=== PATIENT | female | born 1950 | race Caucasian/White ===

== ENCOUNTER 2018-02-27 15:36 | Inpatient (IN) ==
[~2018-02-27 15:36] MED LIST: POLYETHYL. GLYCOL 3350 BOTTLE 238 GM PO ONE
[2018-02-27] MEDS ORDERED: NS FLUSH BAG 500ml IV PRN (15:39)
--- NOTE | 2018-02-27 16:03 | History & Physical Report ---
History of Present Illness Date: 02/27/18 Chief complaint: symptomatic anemia, GI bleeding HPI: Opal is a 67 yr old female who presented to her primary care, Dr. Rubalcava today for evaluation of dyspnea. She reports that for the last month she has had ongoing dyspnea worse with exertion. She was noted to have a history of anemia and had been placed on PO Iron last year. She reports that it caused some constipation and so she stopped it. Upon reevaluation today. Hemoglobin was found to be significantly lower at 6.7. Rectal exam did reveal heme positive stool. Given her symptomatic anemia. The hospitalist services were contacted and accepted. Patient for direct admission. Outpatient observation under the care of Dr. Castro after for further evaluation and treatment. Patient was scheduled for consultation with Dr. Tatum 03/05/18 to discuss colonoscopy. Review of Systems All systems PM: 10-point ROS was reviewed, no additional remarkable complaints except - Respiratory Respiratory: Present: dyspnea on exertion - Gastrointestinal Gastrointestinal: Present: dyspepsia Past Medical History Medical History Updates: Chronic Anemia. GERD. Depression. Hypercholesterolemia Surgical History: Colonoscopy- 2016. Multiple eye surgeries for detached retina and macular tear- x6 surgeries Family History: Father- "clotting problems", congestive heart failure, dementia Mother-heart disease, diabetes, stroke Family History: As Above - Social History Smoking status: Never smoker Substance use type: does not use Alcohol intake frequency: holidays/special occasions only Housing: house Current occupational status: retired Social history: PCP Dr Rubalcava Medications Home Medications Medication Instructions Recorded Confirmed Type Sertraline HCl [Zoloft] 50 mg PO DAILY #0 tab 11/03/15 02/27/18 History Aspirin [Adult Aspirin] 81 mg PO HS 02/27/18 02/27/18 History Cyanocobalamin (Vitamin B-12) 5,000 mcg PO HS 02/27/18 02/27/18 History [Vitamin B12] Multivitamin [One Daily] 1 each PO HS 02/27/18 02/27/18 History Simvastatin [Zocor] 40 mg PO HS 02/27/18 02/27/18 History Sucralfate [Carafate] 1 gm PO QID 02/27/18 02/27/18 History Allergies Allergy/AdvReac Type Severity Reaction Status Date / Time grass pollen Allergy Unknown Verified 02/27/18 16:23 DIRT Allergy Unknown Uncoded 02/27/18 16:23 PET DANDER Allergy Unknown Uncoded 02/27/18 16:23 Exam Vital Signs: Temperature 97.7 F 02/27/18 15:45 Pulse Rate 78 02/27/18 15:45 Respiratory Rate 28 H 02/27/18 15:45 Blood Pressure 131/71 02/27/18 15:45 Pulse Oximetry 97 02/27/18 15:45 Height/Weight/BMI: Height 1.75 m Weight 97.3 kg Body Mass Index 31.6 - Constitutional Present: no acute distress, well nourished, well developed - Routine HEENT Exam Eye: Present: EOMI ENT: Present: mucous membranes moist, dentition normal - Routine Respiratory Exam Present: CTA bilaterally. Absent: wheezes - Routine Cardiovascular Exam Present: RRR, S1, S2. Absent: murmur - Routine Abdominal Exam Present: soft, normoactive bowel sounds, non distended. Absent: tenderness - Routine Extremities Exam Present: normal capillary refill - Routine Skin Exam Present: intact, dry, pallor, warm - Routine Neurological Exam Present: alert, oriented X3, CN II-XII intact, moving all extremities - Routine Psychiatric Exam Present: normal affect, normal thought process, cooperative Assessment and Plan (1) Anemia Current visit: Yes Status: Acute Assessment and Plan: Impression Symptomatic anemia-Hgb 6.7 on admission Chronic Anemia (?Iron def) GERD- worsening heartburn symptoms Depression Hyperlipidemia Plan Admit outpatient observation under the care of Dr Castro for symptomatic anemia Rectal exam at the clinic is reported to be heme positive. We will obtain a stool for occult blood. Iron studies were drawn in the outpatient setting today and are pending Type and screen patient and give 1 unit of packed red blood cells at time of admission. Recheck Hgb later this evening. Consultation placed to Dr. Tatum as patient did have outpatient appointment scheduled for 03/05 to discuss colonoscopy. Patient nothing by mouth until she is evaluated by surgeon today. Protonix 40 mg IV daily- will start now. NS at 100ml/hr for hydration Monitor on cardiac telemetry SCDs to bilateral lower extremity for DVT prophylaxis He should does wish to be a full code and this orders written Will discuss further orders and plan of care with attending, Dr. Castro At time of discharge medical care will return to primary care provider, Dr Rubalcava DVT Prophylaxis: SCD's GI Prophylaxis: Protonix Resuscitation Status: Full Code - Physician Narrative Narrative: Date: 02/27/18 Time: 1600 S: Pt denies any n/v/d, f/c, cp or sob. Denies any epigastric pain. Reports hx of GERD. Had colonoscopy 2 years ago which was unremarkable. Pt denies any NSAID use, denies hematemesis. Reports she doesn't really look at her stool so she's unable to say if any blood in stool but no blood on her tissue. Reports exertional dyspnea has gotten bad in the last month. O: Gen: no acute distress Cards; tachycardia, no murmurs A/P: GI bleed-Hemodynamically stable, bleed seems to be slow and has happened over months, give 1U pRBC, IV fluids, monitor H&H, bowel prep tonight and npo tomorrow for EGD/colonoscopy, surgery consulted. Hospital Course Summary Disclaimer: The visit summary below is not to be considered part of the above Progress Note. Hospital Course: Impression Symptomatic anemia-Hgb 6.7 on admission Chronic Anemia (?Iron def) GERD- worsening heartburn symptoms Depression Hyperlipidemia Plan Admit outpatient observation under the care of Dr Castro for symptomatic anemia Rectal exam at the clinic is reported to be heme positive. We will obtain a stool for occult blood. Iron studies were drawn in the outpatient setting today and are pending Type and screen patient and give 1 unit of packed red blood cells at time of admission. Recheck Hgb later this evening. Consultation placed to Dr. Tatum as patient did have outpatient appointment scheduled for 03/05 to discuss colonoscopy. Patient nothing by mouth until she is evaluated by surgeon today. Protonix 40 mg IV daily- will start now. NS at 100ml/hr for hydration Monitor on cardiac telemetry SCDs to bilateral lower extremity for DVT prophylaxis Full code as requested by patient Will discuss further orders and plan of care with attending, Dr. Castro At time of discharge medical care will return to primary care provider, Dr Rubalcava
--- NOTE | 2018-02-27 16:07 | General Surgery Consult Note ---
Consult date: 02/28/18 Attending Physician: Daphne Castro MD [facility] Patient Stated Medical History Other HEENT Yes: detached retina Gastroesophageal Reflux Yes Disease Anemia Yes Depression Yes Detached retina Surgical History: -colonoscopy 2005 [place]. -colonoscopy diverticulosis [place]. - eye surgery for detached retina Family History: Father- "clotting problems", congestive heart failure, dementia Mother-heart disease, diabetes, stroke - Social History Smoking status: Never smoker Alcohol intake: never Previous occupational history: [employer] Medications Home Medications Medication Instructions Recorded Confirmed Type Sertraline HCl [Zoloft] 50 mg PO DAILY #0 tab 11/03/15 02/27/18 History Aspirin [Adult Aspirin] 81 mg PO HS 02/27/18 02/27/18 History Cyanocobalamin (Vitamin B-12) 5,000 mcg PO HS 02/27/18 02/27/18 History [Vitamin B12] Multivitamin [One Daily] 1 each PO HS 02/27/18 02/27/18 History Simvastatin [Zocor] 40 mg PO HS 02/27/18 02/27/18 History Sucralfate [Carafate] 1 gm PO QID 02/27/18 02/27/18 History Allergies Allergy/AdvReac Type Severity Reaction Status Date / Time grass pollen Allergy Unknown Verified 02/27/18 16:23 DIRT Allergy Unknown Uncoded 02/27/18 16:23 PET DANDER Allergy Unknown Uncoded 02/27/18 16:23 Review of Systems 10-point ROS: negative except for HPI and the following: - Eyes/Ears/Nose/Throat Eyes: Present: other (wears glasses) - Respiratory Respiratory: Present: difficulty breathing (with even minimal walking) - Gastrointestinal Gastrointestinal: Present: diarrhea, constipation - Psychiatric Psychiatric: Present: anxiety (panic attach type symptoms when she gets quite SOA) - Vital Signs Last Vital Signs Temp 97.7 F 02/27/18 15:45 Pulse 78 02/27/18 15:45 Resp 28 H 02/27/18 15:45 BP 131/71 02/27/18 15:45 Pulse Ox 97 02/27/18 15:45 - Laboratory Result Diagrams: 02/28/18 04:28 02/28/18 04:28
[2018-02-27] MEDS ORDERED: PANTOPRAZOLE 40 MG INJECTION IVP SCH (16:15)
[2018-02-27] MEDS: NS 1,000 ML IV SCH (16:33)
[2018-02-27] MEDS ORDERED: Bisacodyl EC TAB 5 MG TABLET PO ONE (16:41)
--- NOTE | 2018-02-27 17:28 | Consultation ---
DATE OF CONSULTATION 02/27/2018 FINDINGS Mrs. To is a 67-year-old female whom I was asked to see today as a result of her finding of marked anemia upon laboratory evaluation. Mrs. To informs me that she has had a known history for anemia for a period of time. Patient states that she was diagnosed with iron deficiency anemia in the past and was placed on iron. The patient states that she did not take iron however for a "very long time". Upon questioning the patient, she states that she took iron for perhaps a week or two and then began to notice some bowel changes and discontinued the iron supplementation thereafter. The patient states that recently she has noted that she has become very short of breath with any type of exertion. Patient states that she was unable to walk from her "living room to her bedroom without becoming quite short of breath". Patient states that when she began to "breathe very hard, she became somewhat panicked". She therefore presented to her primary care physician for further evaluation. She was found to be quite anemic and was subsequently admitted to the hospital for further care and transfusion. Upon questioning the patient, she states that she has not been diagnosed with an ulcer in the past butt has "diagnosed herself " as having an ulcer. Upon questioning the patient, she states that she does have a history of having pain within her upper abdomen. This pain is made worse after eating. Pain is constant in nature when present. Pain is improved by "not eating". Patient states that she has also had some changes in her bowel habits. She states at times she is somewhat constipated and other times she will have frequent "small little stools" . Upon questioning the patient for any history for melena or hematochezia, she states that she "doesn't look at her stools". She is therefore uncertain whether or not she has had any component of rectal bleeding. She denies any family history for colon cancer within a first-degree relative. She states that her grandfather may have from colon cancer but she is somewhat unsure. She denies any significant nonsteroidal use. She does state that she takes a "low-dose aspirin". PAST MEDICAL HISTORY Performed by my nurse practitioner, Carson Bowman. PAST SURGICAL HISTORY Performed by my nurse practitioner, Carson Bowman. MEDICATIONS Performed by my nurse practitioner, Carson Bowman. ALLERGIES Performed by my nurse practitioner, Carson Bowman. SOCIAL HISTORY Performed by my nurse practitioner, Carson Bowman. FAMILY HISTORY Performed by my nurse practitioner, Carson Bowman. REVIEW OF SYSTEMS Performed by my nurse practitioner, Carson Bowman. PHYSICAL EXAMINATION GENERAL: Mrs. To is a 67-year-old female who this evening did not appear to be in acute distress. VITALS: Temperature 97.7, pulse 78, respirations 28, blood pressure 131/71, SaO2 97% on room air. HEENT: Normocephalic. Pupils are equally round and react to light and accommodation. NECK: Supple without lymphadenopathy. CHEST: Clear to auscultation bilaterally. HEART: Regular rate and rhythm. Normal S1, S2, without gallops, murmurs or clicks. ABDOMEN: Palpation of the abdomen reveals it to be soft and nontender. I do not appreciate any evidence for hepatosplenomegaly nor abnormal masses. EXTREMITIES: Without clubbing, cyanosis, or edema. NEURO: Cranial nerves II-XII grossly intact. Patient without focal, motor, or sensory deficits. LABORATORY/RADIOGRAPHIC EVALUATION Currently there are no lab results within the EMR. Looking at her history and physical, it is dictated that her hemoglobin earlier today was found to be 6.7. It is also dictated that earlier today a rectal examination was performed and she was found to have a heme-positive stool. CBC and BMP have been ordered for morning. ASSESSMENT 67-year-old female with history for iron deficiency anemia. Patient with finding of heme-positive stool and progressive anemia upon laboratory evaluation. PLAN Bidirectional endoscopy. I informed the patient that with her progressive anemia, history for epigastric abdominal pain, and finding of a Hemoccult positive stool, I would recommend proceeding with both a colonoscopy as well as an EGD for further evaluation. One may wish also to initially treat her empirically for peptic ulcer disease. Will place order for Protonix. I did discuss in detail with the patient this evening what an EGD and colonoscopy entailed and its associated risks which included, but was not exclusive of, bleeding and/or perforation requiring surgery. The patient understood and agreed with proposed plan. [facility]
[2018-02-27] MEDS: PANTOPRAZOLE 40 MG INJECTION IVP SCH (22:40)
[2018-02-27] MEDS ORDERED: ONDANSETRON ODT 4 MG TABLET PO PRN (23:24)
[2018-02-28] MEDS: NS 1,000 ML IV SCH (06:19)
[2018-02-28] MEDS: FLEET PHOSPHO - SODA ENEMA 133ml PR PRN ×3 (07:58→11:07)
[2018-02-28] MEDS ORDERED: NS FLUSH BAG 500ml IV PRN ×2 (07:59→08:16)
[2018-02-28] MEDS: PANTOPRAZOLE 40 MG INJECTION IVP SCH ×2 (08:49→21:40)
[2018-02-28] MEDS ORDERED: LIDOCAINE VISCOUS 2% ORAL LIQUID 15ml ONE (09:00)
--- NOTE | 2018-02-28 09:08 | General Surgery Progress Note ---
Subjective Narrative: Patient seen earlier this morning. She is without complaints this morning. Denies dizziness, chest pain, SOA, although she has not been out of bed yet this morning. Bowel prep yesterday caused some nausea and emesis. She states stools are still brown and cloudy, Fleets enemas till clear are ordered prn. She had 1 unit PRBC yesterday, HGB increased to 7.5, but has dipped to 6.8 again this am. EGD colonoscopy planned for later today, would like to transfuse another unit prior to endoscopy. - Vital Signs Last Vital Signs Temp 96.4 F L 02/28/18 07:25 Pulse 66 02/28/18 07:25 Resp 16 02/28/18 07:25 BP 129/66 02/28/18 07:25 Pulse Ox 92 02/28/18 07:25 - Laboratory Result Diagrams: 02/28/18 04:28 02/28/18 04:28 - Abnormal Exam Abdominal: obese - Normal Exam General: awake, alert, oriented, no acute distress Respiratory: no labored breathing Abdominal: soft, non-tender Psychiatric: normal affect Assessment and Plan (1) Anemia Current Visit: Yes Status: Acute Qualifiers: Anemia type: unspecified type Qualified Code(s): D64.9 - Anemia, unspecified Plan: HGB still below 7, increased risk of cardiac problems with anesthesia, will plan on transfusing 1 untit PRBC before endoscopy. Enemas this am. EGD colonoscopy this afternoon. Hospital Course Summary Disclaimer: The visit summary below is not to be considered part of the above Progress Note. Hospital Course: Impression Symptomatic anemia-Hgb 6.7 on admission Chronic Anemia (?Iron def) GERD- worsening heartburn symptoms Depression Hyperlipidemia Plan Admit outpatient observation under the care of Dr Castro for symptomatic anemia Rectal exam at the clinic is reported to be heme positive. We will obtain a stool for occult blood. Iron studies were drawn in the outpatient setting today and are pending Type and screen patient and give 1 unit of packed red blood cells at time of admission. Recheck Hgb later this evening. Consultation placed to Dr. Tatum as patient did have outpatient appointment scheduled for 03/05 to discuss colonoscopy. Patient nothing by mouth until she is evaluated by surgeon today. Protonix 40 mg IV daily- will start now. NS at 100ml/hr for hydration Monitor on cardiac telemetry SCDs to bilateral lower extremity for DVT prophylaxis Full code as requested by patient Will discuss further orders and plan of care with attending, Dr. Castro At time of discharge medical care will return to primary care provider, Dr Rubalcava
--- NOTE | 2018-02-28 10:40 | Progress Note ---
- Date 02/28/18 Subjective: Opal is in bed, blood is transfusing. She's expecting to go to preop soon. She hasn't been experiencing the exertional dyspnea like she was at home, but admits that she hasn't been very active here. She denies feeling weak or dizzy at rest. She denies feeling short of breath at rest. She denies abdominal pain/ cramps or nausea. Objective Vital signs: Temperature 96.4 F L 02/28/18 07:25 Pulse Rate 66 02/28/18 07:25 Respiratory Rate 16 02/28/18 07:25 Blood Pressure 129/66 02/28/18 07:25 Pulse Oximetry 92 02/28/18 07:25 Height/Weight/BMI: Height 1.75 m Weight 97.1 kg Body Mass Index 31.6 - Constitutional Present: no acute distress, well nourished, well developed, obese - Routine HEENT Exam Head: Present: normocephalic Eye: Absent: conjunctival icterus, scleral injection ENT: Present: mucous membranes moist, oropharynx clear - Routine Respiratory Exam Present: CTA bilaterally - Routine Cardiovascular Exam Present: RRR, S1, S2 - Routine Abdominal Exam Present: soft, normoactive bowel sounds, non distended, non tender - Routine Extremities Exam Present: no edema - Routine Skin Exam Present: dry, pallor, warm - Routine Neurological Exam Present: alert, oriented X3, moving all extremities, normal speech - Routine Psychiatric Exam Present: normal affect, normal thought process, cooperative Results - Labs CBC & Chem 7: 02/28/18 04:28 02/28/18 04:28 Assessment and Plan (1) Anemia Current visit: Yes Status: Acute Assessment and Plan: Impression Symptomatic anemia-Hgb 6.7 on admission Chronic Anemia (?Iron def) GERD- worsening heartburn symptoms Depression Hyperlipidemia Plan Hgb 6.8 - additional blood transfusion ordered and infusing. Iron studies still pending. Hemodynamically stable. NS dc'd. EGD/colonoscopy planned today per Dr. Tatum. Continue PPI. DVT Prophylaxis: SCD's GI Prophylaxis: Protonix Resuscitation Status: Full Code - Physician Narrative Narrative: Date: 02/28/18 Time: 1033 S: Pt reports feeling a bit better this am. Denies any cp, n/v/d, f/c, or sob. Denies any bleeding episodes overnight. O: Gen: AAOx3, no acute distress Cards: tachycardia, no murmurs Abd: soft, non tender A/P: Pt is stable, will give additional pRBC unit since Hgb <7 this am. Plan for EGD/ colonoscopy today. Hospital Course Summary Disclaimer: The visit summary below is not to be considered part of the above Progress Note. Hospital Course: Impression Symptomatic anemia-Hgb 6.7 on admission Chronic Anemia (?Iron def) GERD- worsening heartburn symptoms Depression Hyperlipidemia Plan Admit outpatient observation under the care of Dr Castro for symptomatic anemia Rectal exam at the clinic is reported to be heme positive. We will obtain a stool for occult blood. Iron studies were drawn in the outpatient setting today and are pending Type and screen patient and give 1 unit of packed red blood cells at time of admission. Recheck Hgb later this evening. Consultation placed to Dr. Tatum as patient did have outpatient appointment scheduled for 03/05 to discuss colonoscopy. Patient nothing by mouth until she is evaluated by surgeon today. Protonix 40 mg IV daily- will start now. NS at 100ml/hr for hydration Monitor on cardiac telemetry SCDs to bilateral lower extremity for DVT prophylaxis Full code as requested by patient Will discuss further orders and plan of care with attending, Dr. Castro At time of discharge medical care will return to primary care provider, Dr Rubalcava 02/28/18 Hgb 6.8 - additional blood transfusion ordered and infusing. Iron studies still pending. Hemodynamically stable. NS dc'd. EGD/colonoscopy planned today per Dr. Tatum. Continue PPI.
[2018-02-28] MEDS ORDERED: LIDOCAINE 2% (100mg/5ml) SYRINGE (PF) IVP ONE (14:16)
--- NOTE | 2018-02-28 14:21 | Anesthesia Preoperative Report ---
Anesthesia Preoperative Record - Date and Time Date: 02/28/18 Preoperative Diagnosis: GI Bleed Proposed Procedure: colonoscopy NPO Since Date: 02/27/18 NPO Since Time: 22:00 Allergies/Adverse Reactions: Allergies Allergy/AdvReac Type Severity Reaction Status Date / Time grass pollen Allergy Unknown Verified 02/27/18 16:23 DIRT Allergy Unknown Uncoded 02/27/18 16:23 PET DANDER Allergy Unknown Uncoded 02/27/18 16:23 - Vital Signs Vital Signs: Temperature 98.9 F 02/28/18 13:48 Pulse Rate 66 02/28/18 14:05 Respiratory Rate 23 02/28/18 13:48 Blood Pressure 143/67 H 02/28/18 13:48 Pulse Oximetry 97 02/28/18 13:48 Height and Weight: Height 5 ft 9 in Weight 97.1 kg Body Mass Index 31.6 - Medications Inpatient Medications: Current Medications Lactated Ringer's (Lactated Ringers) 1,000 mls @ 50 mls/hr IV .Q20H [facility] Last Admin: 02/28/18 14:12 Dose: 50 mls/hr Ondansetron HCl (Zofran Odt Tablet) 4 mg PO Q4H PRN PRN Reason: Nausea &/or vomiting Pantoprazole Sodium (Protonix Iv) 40 mg IVP BID [facility] Last Admin: 02/28/18 08:49 Dose: 40 mg Sodium Chloride (Normal Saline) 500 ml IV PRN PRN Sodium Chloride (Normal Saline) 500 ml IV PRN PRN Sodium Chloride (Normal Saline) 500 ml IV PRN PRN Sodium Phosphate (Fleet Enema) 1 enema [place] PRN PRN Last Admin: 02/28/18 11:07 Dose: 1 enema Home Medications: Home Medications Medication Instructions Recorded Confirmed Type Sertraline HCl [Zoloft] 50 mg PO DAILY #0 tab 11/03/15 02/27/18 History Aspirin [Adult Aspirin] 81 mg PO 02/27/18 02/27/18 History Cyanocobalamin (Vitamin B-12) 5,000 mcg PO HS 02/27/18 02/27/18 History [Vitamin B12] Multivitamin [One Daily] 1 each PO HS 02/27/18 02/27/18 History Simvastatin [Zocor] 40 mg PO HS 02/27/18 02/27/18 History Sucralfate [Carafate] 1 gm PO QID 02/27/18 02/27/18 History Atropine 1% Eye Drops 1 drop RIGHT EYE QID 02/28/18 02/28/18 History [id number] Eye Oint 1 applicatio RIGHT EYE HS 02/28/18 02/28/18 History Polymyxin B/Tmp Eye Drops 1 drop RIGHT EYE QID 02/28/18 02/28/18 History [Polytrim Eye Drops] prednisoLONE [Prednisolone] 1 drop RIGHT EYE QID 02/28/18 02/28/18 History Is Patient on Beta Kartik?: No - Medical History Respiratory: DENIES: Asthma, Bronchitis, Chronic Obstructive Pulmonary Disease (COPD), Dyspnea, Orthopnea, Pulmonary Embolism, Pneumonia, Upper Respiratory Infection, Pulmonary Edema, Sleep Apnea, Tuberculosis, Other Cardiovascular: DENIES: Abnormal EKG, Angina, Arrhythmia, Congestive Heart Failure, Coronary Artery Disease, Heart Murmur, Hypertension, Hypotension, High Cholesterol, Myocardial Infarction, Rheumatic Fever, Valvular Heart Disease, Other Gastrointestional: Reports: Gastroesophageal Reflux Disease DENIES: Obstructive Bowel, Hepatitis, Cirrhosis, Nausea or Vomiting Present, Gastrointestinal Bleeding, Hiatal Hernia, Ulcer, Morbid Obesity, Other Neuro/Musculoskeletal: Reports: Depression Denies: Back Problems, Cerebrovascular Accident, Headaches, Loss of Consciousness, Muscle Weakness, Neuromuscular Disorder, Paralysis, Paresthesia, Syncope, Seizures, Other Renal/Endocrine: DENIES: Diabetes Mellitus Type 1, Diabetes Mellitus Type 2, Renal Failure, Dialysis, Thyroid Disease, Weight Loss, Weight Gain, Other - Surgical History HEENT Surgeries: Reports: Eye Surgery (detached retina,closed macular hole) GI Surgery/Treatments: Reports: Colonoscopy (2016 - normal) Anesthesia Reactions: None Hx Family Anesthesia Reaction: No History of Motion Sickness: No - Social History Smoking Status: Never smoker Hx Chewing Tobacco Use: No Second Hand Exposure: No Substance Use Type: does not use Alcohol Intake: never Alcohol Intake Frequency: does not drink - Pertinent Findings Laboratory: CBC and BMP 02/28/18 12:45 02/28/18 04:28 BMP 02/28/18 04:28 Sodium 143 Potassium 3.7 Chloride 110 H Carbon Dioxide 23 BUN 21.0 H Creatinine 0.8 Glucose 113 H Calcium 8.8 EKG: Sinus Rhythm - Physical Exam Respiratory Exam: Present: lungs clear, bilateral breath sounds equal Cardiovascular Exam: Present: regular rate and rhythm, no murmur - Airway Assessment Mallampati Score: II TMD: 2 Fingerbreadths Neck Extension: good Overall Assessment: may be difficult intubation - ASA ASA Score: 2 - Plan Anesthesia: General TIVA - Discussion Discussion: Discussed risks/options/alternatives of anesthesia and questions answered. Patient consents. Nursing pain assessment noted. Attestation Statement: Prior to the delivery of any anesthetic medication, I examined the patient, developed the plan, obtained the patient's consent and discussed the risk and benefits of the procedure with the patient/guardian. - Additional Information Seen by Anesthesia: Yes
[2018-02-28] MEDS ORDERED: LIDOCAINE VISCOUS 2% ORAL LIQUID 15ml PO ONE (14:32)
[2018-02-28] MEDS ORDERED: ALFENTANIL 1000mcg/2ml INJECTION IVP ONE (14:35)
--- NOTE | 2018-02-28 14:53 | Procedure Note ---
- Procedure Date/Time: Date: 02/28/18 Time: 1443 Surgeon: Rc ASA Score: 2 Proceure: EGD - Postoperative Colonoscopy Diagnosis Diverticulosis - Postoperative EGD Diagnosis Postoperative EGD Diagnosis: Hiatal hernia - Complications Estimated Blood Loss: See Anesthesia Record. Vital Signs: See Anesthesia and PACU record.
--- NOTE | 2018-02-28 15:26 | Anesthesia Postoperative Note ---
- Date and Time Date: 02/28/18 Time: 15:25 - Status Patient Participated in Evaluation: Patient Participated in Person Vital Signs: Temperature 97.6 F 02/28/18 14:56 Pulse Rate 55 L 02/28/18 15:10 Respiratory Rate 14 02/28/18 15:10 Blood Pressure 113/56 02/28/18 15:10 Pulse Oximetry 95 02/28/18 15:10 Respiratory Function: Airway Patent, Regular Respirations Cardiovascular Function: Regular Pulse EKG: Sinus Rhythm Mental Status: Alert and Oriented Pain Intensity: 0 Hydration: IV Infusing Complications During Recover: None Apparent - Follow-Up Instructions Instructions: Per Surgeon
--- NOTE | 2018-02-28 17:04 | Operative Note ---
DATE OF SERVICE 02/28/2018 SURGEON Timothy Tatum MD PREOPERATIVE DIAGNOSIS Anemia. POSTOPERATIVE DIAGNOSIS Hiatal hernia, sigmoid diverticulosis. PROCEDURE Esophagogastroduodenoscopy, colonoscopy. ANESTHESIA TIVA BRIEF HISTORY/INDICATIONS Mrs. To is a 67-year-old female whom I was asked to see as a result of her finding of marked anemia upon laboratory evaluation. It was recommended that she undergo bidirectional endoscopy for further evaluation. For completeness please refer to notes included in the patient's chart. FINDINGS Upon upper endoscopy, no mucosal lesions were noted within the esophagus, stomach or duodenum. The patient was found to have a 6-7 cm hiatal hernia. Upon colonoscopy, there was no evidence for angiodysplastic lesions, polyps or vanessa malignancies. The patient was found to have a moderate number of diverticula within the sigmoid colon region. There was no element of blood upon the mucosa within the colon, esophagus, stomach, or duodenum. DESCRIPTION OF PROCEDURE After informed consent was obtained, patient was brought to the endoscopy suite and placed on the table in left lateral decubitus position. The patient subsequently underwent total intravenous anesthesia by the nurse insurance sales associate per my request. Formal time-out was then completed. Next an Olympus gastroscope was inserted in the oral hypopharynx and subsequently the esophagus under direct visualization. Gastroscope was advanced through the esophagus, stomach, pylorus, duodenal bulb, to the second portion of the duodenum. Scope was then slowly withdrawn. First and second portions of the duodenum were within normal limits. No evidence of duodenitis or ulcerations were noted. Scope was withdrawn back to the prepyloric region and antrum. Again no marked mucosal abnormalities were noted. No evidence for old blood upon the surface of the mucosa. A J-maneuver was then performed. Endoscopically one could see a moderate-sized hiatal hernia. Otherwise the cardia and fundus of the stomach were without abnormalities. Scope was allowed to straighten and slowly withdrawn. The remaining corpus of the stomach was well visualized and again without noted abnormalities. Gastroscope was then continued to be withdrawn. Squamocolumnar junction was located about 6-7 cm above the level of the diaphragm. Squamocolumnar junction was well demarcated with no endoscopic evidence for Randhawa's metaplasia or distal esophagitis. Gastroscope was continued to be slowly withdrawn. The remaining esophageal mucosa was found to be within normal limits. Next attention was directed towards performing colonoscopy. First a digital rectal examination was performed. Normal sphincter tone. No rectal masses were appreciated. Olympus colonoscope was inserted in the anus and advanced through the lumen of the colon under direct visualization at all times until the cecum was ascertained. Triangulation of the teniae coli, ileocecal valve and appendiceal lumen were all visualized. Scope was then slowly withdrawn, again maintaining visualization of the lumen at all times. As stated above, the entire colon was without evidence for angiodysplastic lesions, polyps or vanessa malignancies. The patient was found to have a moderate number of diverticula within the sigmoid colon region. Colonoscope was continued to be withdrawn until it was brought forth back to the rectal vault. A J-maneuver was then performed. No worrisome perianal pathology was noted. Scope was allowed to straighten and withdrawn from the anal verge. The patient tolerated the procedure without difficulty and was sent back to the preop area in stable condition. From an endoscopic standpoint, no mucosal abnormalities were noted to explain the patient's marked anemia. I do feel the patient would benefit from seeing Hematology on an outpatient basis. From a colorectal cancer screening standpoint, she will not need a repeat colonoscopy until 10 years from now unless new specific indication should arise in the future. OTTO
[2018-02-28] MEDS: ATROPINE 1% PO SCH (21:41)
[2018-02-28] MEDS: NEOMYCIN PO SCH (21:42)
[2018-02-28] MEDS: POLYMYXIN B PO SCH (21:42)
[2018-02-28] MEDS: BACITRACIN PO SCH (21:42)
[2018-02-28] MEDS: [UNRECOGNIZED DRUG - OTHER] RIGHT EYE SCH (21:43)
[2018-02-28] MEDS: EYE RIGHT EYE SCH (21:43)
[2018-02-28] MEDS: PREDNISOLONE 1% RIGHT EYE SCH (21:43)
[2018-02-28] MEDS: POLYMYXIN RIGHT EYE SCH (21:43)
--- NOTE | 2018-03-01 08:11 | Progress Note ---
- Date 03/01/18 Subjective: Opal denies any sx of anemia but states that she hasn't been doing much. She definitely feels better than she did when she was admitted. She denies weakness , dizziness/lightheadedness, dyspnea. Prior to admission she was having dyspnea on exertion. She ate a hamburger last night and didn't have any nausea/ vomiting. She denies abd pain/cramping. She denies passing any blood. She would like to go home if medically safe but is concerned that the EGD/colonoscopy didn 't reveal any reason for anemia. Objective Vital signs: Temperature 96.9 F 03/01/18 03:00 Pulse Rate 74 03/01/18 03:00 Respiratory Rate 16 03/01/18 03:00 Blood Pressure 121/50 03/01/18 03:00 Pulse Oximetry 94 03/01/18 03:00 Height/Weight/BMI: Height 1.75 m Weight 97.1 kg Body Mass Index 31.6 - Constitutional Present: no acute distress, well nourished, well developed, obese - Routine HEENT Exam Head: Present: normocephalic Eye: Present: PERRL. Absent: conjunctival icterus, scleral injection ENT: Present: mucous membranes moist - Routine Respiratory Exam Present: CTA bilaterally - Routine Cardiovascular Exam Present: RRR, S1, S2 - Routine Abdominal Exam Present: soft, normoactive bowel sounds, non distended, non tender - Routine Extremities Exam Present: no edema - Routine Back/Spine/Pelvis Exam Back/Spine: Present: full ROM - Routine Musculoskeletal Exam Musculoskeletal: Present: moving extremities well - Routine Skin Exam Present: intact, dry, pallor, warm - Routine Neurological Exam Present: alert, oriented X3, normal speech - Routine Psychiatric Exam Present: normal affect, normal thought process, cooperative Results - Labs CBC & Chem 7: 03/01/18 12:00 03/01/18 04:17 Assessment and Plan (1) Anemia Current visit: Yes Status: Acute Assessment and Plan: Impression Symptomatic anemia-Hgb 6.7 on admission Chronic Anemia (Iron def) Hypokalemia, not POA GERD- worsening heartburn symptoms Depression Hyperlipidemia Plan Hgb 7.4, slightly less than last check last night. Repeat at noon. Iron studies: iron low at 20, TIBC 438, % sat low at 5%, Ferritin 10.4. Start oral iron, consider IV iron. EGD/colonoscopy on 02/28 - hiatal hernia, sigmoid diverticulosis, no clear etiology for blood loss. Will need heme eval - could likely be done in outpt setting if hgb remains stable. Consult PT to evaluate if there are home safety recommendations. Mild hypokalemia - KDur ordered. Change Protonix to PO. DVT Prophylaxis: SCD's GI Prophylaxis: Protonix Resuscitation Status: Full Code - Physician Narrative Narrative: Date: 03/01/18 Time: 808 S: Pt feeling better than when she first came in, denies any cp, sob, n/v/d, f/ c. O: Gen: AAOx3, no acute distress Cards: RRR without mumurs Lungs: CTAB without wheezing A/P: Anemia-Unclear source, FOBT + but colonoscopy and EGD neg. Will do peripheral smear, ldh, cmp, haptoglobin, retic count. Iron deficiency-Will do IV iron as she is very low and possibly having a gi bleed Hgb still a bit low even after receiving 2 units of blood. Will cont. to trend and monitor Hospital Course Summary Disclaimer: The visit summary below is not to be considered part of the above Progress Note. Hospital Course: Impression Symptomatic anemia-Hgb 6.7 on admission Chronic Anemia (?Iron def) GERD- worsening heartburn symptoms Depression Hyperlipidemia Plan Admit outpatient observation under the care of Dr Castro for symptomatic anemia Rectal exam at the clinic is reported to be heme positive. We will obtain a stool for occult blood. Iron studies were drawn in the outpatient setting today and are pending Type and screen patient and give 1 unit of packed red blood cells at time of admission. Recheck Hgb later this evening. Consultation placed to Dr. Tatum as patient did have outpatient appointment scheduled for 03/05 to discuss colonoscopy. Patient nothing by mouth until she is evaluated by surgeon today. Protonix 40 mg IV daily- will start now. NS at 100ml/hr for hydration Monitor on cardiac telemetry SCDs to bilateral lower extremity for DVT prophylaxis Full code as requested by patient Will discuss further orders and plan of care with attending, Dr. Castro At time of discharge medical care will return to primary care provider, Dr Rubalcava 02/28/18 Hgb 6.8 - additional blood transfusion ordered and infusing. Iron studies still pending. Hemodynamically stable. NS dc'd. EGD/colonoscopy - moderate sized hiatal hernia, sigmoid diverticulosis, no clear etiology for blood loss. Continue PPI. 03/01/18 Hgb 7.4, slightly less than last check last night. Repeat at noon. Iron studies: iron low at 20, TIBC 438, % sat low at 5%, Ferritin 10.4. Start oral iron, consider IV iron. Will need heme eval - could likely be done in outpt setting if hgb remains stable. Consult PT to evaluate if there are home safety recommendations. Mild hypokalemia - KDur ordered. Change Protonix to PO.
[2018-03-01] MEDS: PANTOPRAZOLE 40 MG TABLET PO SCH (09:08)
[2018-03-01] MEDS: PREDNISOLONE 1% RIGHT EYE SCH ×4 (09:09→21:55)
[2018-03-01] MEDS: ATROPINE 1% PO SCH ×4 (09:09→21:55)
[2018-03-01] MEDS: [UNRECOGNIZED DRUG - OTHER] RIGHT EYE SCH ×4 (09:09→21:55)
[2018-03-01] MEDS: POLYMYXIN RIGHT EYE SCH ×4 (09:09→21:55)
[2018-03-01] MEDS: EYE RIGHT EYE SCH ×4 (09:09→21:55)
--- NOTE | 2018-03-01 11:36 | General Surgery Progress Note ---
Subjective Patient reports: no new complaints, feels better, tolerating a regular diet Narrative: Saw the patient earlier this morning. Denies chest pain, dizziness, lightheadedness. She has been up to the bathroom couple times since endoscopy. - Vital Signs Last Vital Signs Temp 97.6 F 03/01/18 08:23 Pulse 64 03/01/18 08:23 Resp 18 03/01/18 08:23 BP 132/72 03/01/18 08:23 Pulse Ox 94 03/01/18 08:23 - Laboratory Result Diagrams: 03/01/18 04:17 03/01/18 04:17 - Normal Exam General: awake, alert Cardiovascular: regular rhythm, regular rate Respiratory: clear bilaterally, no labored breathing Abdominal: soft, non-tender Psychiatric: normal affect Assessment and Plan (1) Iron deficiency anemia Current Visit: Yes Status: Chronic Qualifiers: Iron deficiency anemia type: unspecified iron deficiency Qualified Code(s) : D50.9 - Iron deficiency anemia, unspecified Plan: Bidirectional endoscopy yesterday were normal. No tumors, ulcers or endoscopic explanation for her anemia. Iron studies returned as iron level at 20, TIBC at 438, percent saturation of 5 , and ferritin 10.4. Suspect she may need iron infusion or by mouth iron. Final decision regarding medical management deferred to hospitalist at her primary care physician. Hospital Course Summary Disclaimer: The visit summary below is not to be considered part of the above Progress Note. Hospital Course: Impression Symptomatic anemia-Hgb 6.7 on admission Chronic Anemia (?Iron def) GERD- worsening heartburn symptoms Depression Hyperlipidemia Plan Admit outpatient observation under the care of Dr Castro for symptomatic anemia Rectal exam at the clinic is reported to be heme positive. We will obtain a stool for occult blood. Iron studies were drawn in the outpatient setting today and are pending Type and screen patient and give 1 unit of packed red blood cells at time of admission. Recheck Hgb later this evening. Consultation placed to Dr. Tatum as patient did have outpatient appointment scheduled for 03/05 to discuss colonoscopy. Patient nothing by mouth until she is evaluated by surgeon today. Protonix 40 mg IV daily- will start now. NS at 100ml/hr for hydration Monitor on cardiac telemetry SCDs to bilateral lower extremity for DVT prophylaxis Full code as requested by patient Will discuss further orders and plan of care with attending, Dr. Castro At time of discharge medical care will return to primary care provider, Dr Rbualcava 02/28/18 Hgb 6.8 - additional blood transfusion ordered and infusing. Iron studies still pending. Hemodynamically stable. NS dc'd. EGD/colonoscopy - moderate sized hiatal hernia, sigmoid diverticulosis, no clear etiology for blood loss. Continue PPI. 03/01/18 Hgb 7.4, slightly less than last check last night. Repeat at noon. Iron studies: iron low at 20, TIBC 438, % sat low at 5%, Ferritin 10.4. Start oral iron, consider IV iron. Will need heme eval - could likely be done in outpt setting if hgb remains stable. Consult PT to evaluate if there are home safety recommendations. Mild hypokalemia - KDur ordered. Change Protonix to PO.
[2018-03-01 14:03] VITALS: BMI 32.0
[2018-03-01] MEDS ORDERED: LR 1,000 ML IV SCH (14:10)
[2018-03-01] MEDS ORDERED: IRON - PHARMACY CONSULT MC ONE ×2 (15:03→15:17)
[2018-03-01] MEDS ORDERED: FERRIC CARBOXYMALTOSE 750 MG in NS 250ml 250 ML IV SCH (15:45)
[2018-03-01] MEDS: BACITRACIN PO SCH (21:55)
[2018-03-01] MEDS: POLYMYXIN B PO SCH (21:55)
[2018-03-01] MEDS: NEOMYCIN PO SCH (21:55)
[2018-03-02] MEDS: PANTOPRAZOLE 40 MG TABLET PO SCH (05:38)
[2018-03-02] MEDS ORDERED: FERROUS SULFATE 324 MG TABLET PO SCH (08:00)
[2018-03-02] MEDS: EYE RIGHT EYE SCH ×4 (08:52→21:26)
[2018-03-02] MEDS: PREDNISOLONE 1% RIGHT EYE SCH ×4 (08:52→21:26)
[2018-03-02] MEDS: POLYMYXIN RIGHT EYE SCH ×4 (08:53→21:25)
[2018-03-02] MEDS: [UNRECOGNIZED DRUG - OTHER] RIGHT EYE SCH ×4 (08:53→21:25)
[2018-03-02] MEDS: ATROPINE 1% PO SCH ×4 (08:53→21:24)
--- NOTE | 2018-03-02 11:21 | Progress Note ---
DATE 03/02/2018 FINDINGS Mrs. To was seen this morning on rounds. She states that she is feeling well. She states that she is "ready go home". OBJECTIVE VITALS: Afebrile. Normotensive. Last recorded vitals include temperature 97.3 , pulse 62, respirations 16, blood pressure 133/70, SaO2 93% on room air. HEENT: Normocephalic. Pupils are equally round and react to light and accommodation. CHEST: Clear to auscultation bilaterally. HEART: Regular rate and rhythm. Normal S1, S2, without gallops, murmurs or clicks. ABDOMEN: Palpation of the abdomen reveals it to be soft and nontender. I do not appreciate any evidence for hepatosplenomegaly nor abnormal masses. LABORATORY/RADIOGRAPHIC EVALUATION Patient had a repeat CBC today and her hemoglobin is stable at 7.3. White count is stable at 7.5. CMP obtained and found to be without marked abnormalities. Patient has underwent prior iron studies that did reveal her to be iron deficient in nature. ASSESSMENT 67-year-old female with iron deficiency anemia. Status post EGD and colonoscopy that did not reveal marked endoscopic abnormalities to explain the patient's iron deficiency anemia. PLAN I agree with current management of this patient. She has received IV iron infusions. From a general surgical standpoint, I do feel the patient could be discharged to home. I would encourage the patient to see Hematology on an outpatient basis for further evaluation of her iron deficiency anemia. If the patient would develop ongoing progressive anemia requiring additional transfusions, may proceed with additional GI evaluation such as a capsule endoscopy or perhaps a double balloon push enteroscopy to evaluate remaining small bowel. I would however initially proceed with further evaluation from a medical standpoint/hematology standpoint. [facility]
--- NOTE | 2018-03-02 15:50 | Progress Note ---
- Date 03/02/18 Subjective: The patient was seen this afternoon in her room. She states she is feeling much better than when she was admitted. She stated she could only take a few steps and would feel very short of breath. She states at times she would have heart racing and some chest discomfort as well. She has not had any vomiting. She never looked at her stools to know if they were bloody or black. She has been anemic for about a year per her report. She states her hemoglobin was 8 in December. She was on iron a year ago but stopped it because of constipation. During the hospital course she had an EGD and colonoscopy which did not show any obvious source for any bleeding and no signs of any active bleeding were seen. She had a positive Hemoccult as an outpatient and a positive Hemoccult here. BUN was slightly elevated on admission and now is normal. She did not have any obvious melena. She states she is walking in her room and does not notice any shortness of breath. She states she did walk with physical therapy yesterday and walked down to the lobby and back. She stated that when she was getting back to the room she started developing some shortness of breath, but she felt her breathing was much better than prior to admission. She denies any lightheadedness or chest pain during this hospitalization. The patient did receive IV iron yesterday. Objective Vital signs: Temperature 97.3 F 03/02/18 07:20 Pulse Rate 78 03/02/18 15:38 Respiratory Rate 18 03/02/18 15:38 Blood Pressure 147/86 H 03/02/18 15:38 Pulse Oximetry 94 03/02/18 15:38 Height/Weight/BMI: Height 1.75 m Weight 100 kg Body Mass Index 32.0 Comments: Weight is up about 3 kg since admission GEN-alert and oriented, no acute distress HEENT-sclera anicteric, oropharynx is moist NECK-supple CV-regular rate and rhythm CHEST-clear to auscultation bilaterally ABD-soft, nontender with positive bowel sounds -no Bell EXT-no edema NEURO-no focal deficits SKIN-warm and dry Results - Labs CBC & Chem 7: 03/02/18 04:55 03/02/18 04:55 Labs: MCV is low at 76, iron is low at 20, ferritin is 10.4, iron sat is 5%. Haptoglobin is normal. Percent reticulocytes is 2.5, immature reticulocyte fraction 25.6 both of which are high. Retic hemoglobin content is 16.6 which is low Assessment and Plan (1) Anemia Current visit: Yes Status: Acute Assessment and Plan: Impression Symptomatic anemia-Hgb 6.7 on admission, patient received 1 unit of blood on 02/2018 and 1 unit on 02/28/2018 Chronic Anemia (Iron def), doubt acute blood loss anemia EGD/colonoscopy on 02/28 - hiatal hernia, sigmoid diverticulosis, no clear etiology for blood loss. Iron studies: iron low at 20, TIBC 438, % sat low at 5% , Ferritin 10.4. Hypokalemia, not POA GERD- worsening heartburn symptoms Depression Hyperlipidemia Plan Hemoglobin today is 7.3. She has had no bleeding. She has been up walking in the room without shortness of breath or lightheadedness. She did receive IV iron yesterday. We'll start oral iron today. Likely discharge tomorrow if hemoglobin has not worsened. Discussed with Dr. Tatum today, and from his standpoint patient was stable for dismissal. Restart the patient's statin for hyperlipidemia and Zoloft for depression Discussed with patient. - Physician Narrative Narrative: Date: 03/02/18 Time: 1546 Hospital Course Summary Disclaimer: The visit summary below is not to be considered part of the above Progress Note. Hospital Course: Impression Symptomatic anemia-Hgb 6.7 on admission Chronic Anemia (?Iron def) GERD- worsening heartburn symptoms Depression Hyperlipidemia Plan Admit outpatient observation under the care of Dr Castro for symptomatic anemia Rectal exam at the clinic is reported to be heme positive. We will obtain a stool for occult blood. Iron studies were drawn in the outpatient setting today and are pending Type and screen patient and give 1 unit of packed red blood cells at time of admission. Recheck Hgb later this evening. Consultation placed to Dr. Tatum as patient did have outpatient appointment scheduled for 03/05 to discuss colonoscopy. Patient nothing by mouth until she is evaluated by surgeon today. Protonix 40 mg IV daily- will start now. NS at 100ml/hr for hydration Monitor on cardiac telemetry SCDs to bilateral lower extremity for DVT prophylaxis Full code as requested by patient Will discuss further orders and plan of care with attending, Dr. Castro At time of discharge medical care will return to primary care provider, Dr Rubalcava 02/28/18 Hgb 6.8 - additional blood transfusion ordered and infusing. Iron studies still pending. Hemodynamically stable. NS dc'd. EGD/colonoscopy - moderate sized hiatal hernia, sigmoid diverticulosis, no clear etiology for blood loss. Continue PPI. 03/01/18 Hgb 7.4, slightly less than last check last night. Repeat at noon. Iron studies: iron low at 20, TIBC 438, % sat low at 5%, Ferritin 10.4. Start oral iron, consider IV iron. Will need heme eval - could likely be done in outpt setting if hgb remains stable. Consult PT to evaluate if there are home safety recommendations. Mild hypokalemia - KDur ordered. Change Protonix to PO.
[2018-03-02] MEDS: SERTRALINE 50 MG TABLET PO SCH (16:46)
[2018-03-02] MEDS: FERROUS SULFATE 324 MG TABLET PO SCH (18:08)
[2018-03-02] MEDS ORDERED: CYANOCOBALAMIN PO SCH (21:00)
[2018-03-02] MEDS ORDERED: SIMVASTATIN 40 MG TABLET PO SCH (21:00)
[2018-03-02] MEDS ORDERED: [UNRECOGNIZED DRUG - OTHER] PO SCH (21:00)
[2018-03-02] MEDS: POLYMYXIN B PO SCH (21:25)
[2018-03-02] MEDS: NEOMYCIN PO SCH (21:25)
[2018-03-02] MEDS: BACITRACIN PO SCH (21:25)
[2018-03-03 00:25] VITALS: O2SAT 92
[2018-03-03] MEDS: PANTOPRAZOLE 40 MG TABLET PO SCH (06:04)
[2018-03-03 07:49] VITALS: BP 126/69; PULSE 68; RESP 16; TEMP 96.5
[2018-03-03] MEDS: POLYMYXIN RIGHT EYE SCH (08:47)
[2018-03-03] MEDS: [UNRECOGNIZED DRUG - OTHER] RIGHT EYE SCH (08:47)
[2018-03-03] MEDS: SERTRALINE 50 MG TABLET PO SCH (08:47)
[2018-03-03] MEDS: ATROPINE 1% PO SCH (08:47)
[2018-03-03] MEDS: PREDNISOLONE 1% RIGHT EYE SCH (08:47)
[2018-03-03] MEDS: EYE RIGHT EYE SCH (08:47)
[2018-03-03] MEDS: FERROUS SULFATE 324 MG TABLET PO SCH (08:48)
[2018-03-03] MEDS ORDERED: CYANOCOBALAMIN (B-12) 500mcg TABLET PO SCH (09:00)
--- NOTE | 2018-03-03 10:59 | Discharge Summary ---
Discharge Information Date of admission: 02/28/18 15:44 Anticipated date of discharge: 03/03/18 Attending Physician: Blanca Telles MD Primary care physician: Lyndsay Rubalcava MD Consults: 02/27/18 15:36 Physician Consult [CONS] Routine Consulting Provider: Timothy Tatum Reason For Exam: GI bleed, anemia Ordering Provider has Notified Blue Print Control Clerk: Yes - Discharge Diagnosis (1) Anemia Status: Acute Symptomatic anemia-Hgb 6.7 on admission, patient received 1 unit of blood on 02/2018 and 1 unit on 02/28/2018 Chronic Anemia (Iron def), doubt acute blood loss anemia EGD/colonoscopy on 02/28 - hiatal hernia, sigmoid diverticulosis, no clear etiology for blood loss. Iron studies: iron low at 20, TIBC 438, % sat low at 5% , Ferritin 10.4. Heme positive stool Hypokalemia, not POA-resolved Hiatal hernia seen on EGD Sigmoid diverticula seen on colonoscopy - Procedures Procedures: EGD and colonoscopy by Dr. Timothy Tatum on 02/28/2018 FINDINGS Upon upper endoscopy, no mucosal lesions were noted within the esophagus, stomach or duodenum. The patient was found to have a 6-7 cm hiatal hernia. Upon colonoscopy, there was no evidence for angiodysplastic lesions, polyps or vanessa malignancies. The patient was found to have a moderate number of diverticula within the sigmoid colon region. There was no element of blood upon the mucosa within the colon, esophagus, stomach, or duodenum. - Laboratory Labs: Laboratory Tests 02/27/18 03/01/18 13:07 04:14 Iron 20 L TIBC 438 % Saturation 5 L Ferritin 10.4 L Lactate Dehydrogenase 489 Hemoglobin was 6.2 on admission. Hemoglobin was 7.3 on 03/02/2018 heme positive stool on 02/27/2018 03/03/18 05:00 03/03/18 04:55 History of Present Illness HPI: Opal is a 67 yr old female who presented to her primary care, Dr. Rubalcava today for evaluation of dyspnea. She reports that for the last month she has had ongoing dyspnea worse with exertion. She was noted to have a history of anemia and had been placed on PO Iron last year. She reports that it caused some constipation and so she stopped it. Upon reevaluation today. Hemoglobin was found to be significantly lower at 6.7. Rectal exam did reveal heme positive stool. Given her symptomatic anemia. The hospitalist services were contacted and accepted. Patient for direct admission. Outpatient observation under the care of Dr. Castro after for further evaluation and treatment. Patient was scheduled for consultation with Dr. Tatum 03/05/18 to discuss colonoscopy. Objective Vital signs: Temperature 96.5 F L 03/03/18 07:48 Pulse Rate 68 03/03/18 07:48 Respiratory Rate 16 03/03/18 07:48 Blood Pressure 126/69 03/03/18 07:48 Pulse Oximetry 92 03/03/18 07:48 Height/Weight/BMI: Height 1.75 m Weight 100 kg Body Mass Index 32.0 Comments: On 03/03/2018, day of discharge, patient is feeling quite well. No chest pains, shortness of breath or lightheadedness. She has been up walking without difficulty. She had a bowel movement which was a normal light brown color. She is eating and drinking well. She feels ready for discharge. On exam she is alert and oriented 3 and in no acute distress. Chest is clear to auscultation. Cardiovascular reveals a regular rate and rhythm. Telemetry shows occasional PVCs. Abdomen is soft and nontender. Extremities are free of edema. Skin is warm and dry and without rashes. Hospital Course This is a general summary of the patient's hospital course. For more details refer to the complete medical record. Hospital course: 02/27/2018 Impression Symptomatic anemia-Hgb 6.7 on admission Chronic Anemia (?Iron def) GERD- worsening heartburn symptoms Depression Hyperlipidemia Plan Admit outpatient observation under the care of Dr Castro for symptomatic anemia Rectal exam at the clinic is reported to be heme positive. We will obtain a stool for occult blood. Iron studies were drawn in the outpatient setting today and are pending Type and screen patient and give 1 unit of packed red blood cells at time of admission. Recheck Hgb later this evening. Consultation placed to Dr. Tatum as patient did have outpatient appointment scheduled for 03/05 to discuss colonoscopy. Patient nothing by mouth until she is evaluated by surgeon today. Protonix 40 mg IV daily- will start now. NS at 100ml/hr for hydration Monitor on cardiac telemetry SCDs to bilateral lower extremity for DVT prophylaxis Full code as requested by patient Will discuss further orders and plan of care with attending, Dr. Castro At time of discharge medical care will return to primary care provider, Dr Rubalcava 02/28/18 Hgb 6.8 - additional blood transfusion ordered and infusing. Iron studies still pending. Hemodynamically stable. NS dc'd. EGD/colonoscopy - moderate sized hiatal hernia, sigmoid diverticulosis, no clear etiology for blood loss. Continue PPI. 03/01/18 Hgb 7.4, slightly less than last check last night. Repeat at noon. Iron studies: iron low at 20, TIBC 438, % sat low at 5%, Ferritin 10.4. Start oral iron, consider IV iron. Will need heme eval - could likely be done in outpt setting if hgb remains stable. Consult PT to evaluate if there are home safety recommendations. Mild hypokalemia - KDur ordered. Change Protonix to PO. 03/02/2018 Hemoglobin today is 7.3. She has had no bleeding. She has been up walking in the room without shortness of breath or lightheadedness. She did receive IV iron yesterday. We'll start oral iron today. Likely discharge tomorrow if hemoglobin has not worsened. Discussed with Dr. Tatum today, and from his standpoint patient was stable for dismissal. Restart the patient's statin for hyperlipidemia and Zoloft for depression Discussed with patient. 03/03/2018 Hemoglobin today is 7.6. She had a normal appearing bowel movement today. She has been up walking in the hallways without difficulties. Overall, she feels much better than she did on admission. She has received a total of 2 units of blood. She had no vanessa melena or any hematochezia during the hospital course. It was thought that she likely had a chronic worsening iron deficiency anemia. She underwent EGD and colonoscopy neither of which showed a clear cause for her iron deficiency anemia. No signs of bleeding were seen. At this time, hemoglobin appears to be stable. She received IV ferric carboxymaltose 650 mg on 03/01/2018. She will be due for 1 more dose a week later on 03/08/2018 and she can come to the infusion center. She will be discharged today on oral iron. She was notified that she should look for signs of recurring anemia such as dyspnea on exertion, lightheadedness or chest discomfort. If she has any of these symptoms she should seek medical attention right away. Also, if she notices any bloody or coffee-ground emesis or bloody stools or dark tarry stools she should also seek medical attention. In the past, she did have constipation with iron. I discussed with her should that she could take MiraLAX to prevent constipation and could adjust her dose from between half a capful every other day up to 1 capful twice a day. She is to follow-up with her primary care provider this coming week and recommend that she refer her to a blueprint reader regarding her anemia. Time spent with patient: discharge greater than 30 minutes Resuscitation Status: Full Code Discharge Plan - Discharge Disposition Discharge Date: 03/03/18 Disposition: Discharged Home, Self-Care *Condition: Stable Reason For Visit (Visit label in EMR): chronic iron deficiency anemia, heme positive stoo - Discharge Medications *Discharge Medications: New Ferric Carboxymaltose [Injectafer] 750 mg IV O #1 vial Ferrous Sulfate [Feosol] 324 mg PO WB tab Continue Multivitamin [One Daily] 1 each PO HS Simvastatin [Zocor] 40 mg PO HS Xnqwee-Xdked-Vqiowps Eye Oint 1 applicatio RIGHT EYE HS Sertraline HCl [Zoloft] 50 mg PO DAILY #0 tab Cyanocobalamin (Vitamin B-12) [Vitamin B12] 5,000 mcg PO HS Polymyxin B/Tmp Eye Drops [Polytrim Eye Drops] 1 drop RIGHT EYE QID Atropine 1% Eye Drops 1 drop RIGHT EYE QID prednisoLONE acetate [Prednisolone Acetate] 1 drop RIGHT EYE QID Discontinued Aspirin [Adult Aspirin] 81 mg PO HS Sucralfate [Carafate] 1 gm PO QID - Discharge Packet/Instructions *Diet: Diet as tolerated *Activity: Activity as tolerated *Pain Management/Treatment: Tylenol as needed for pain *Wound Care: Not applicable Additional Instructions: #1 Come in to [facility] outpatient infusion for IV iron on 03/08/2018. This will complete your course of IV iron. #2. #2 You should continue on oral iron for now. #3 Recommend follow- up with a blueprint reader, Dr. Rubalcava can help you set up this appointment. #4 You can take MiraLAX to help prevent constipation while on oral iron. You can adjust her dose between half a capful every other day up to 1 whole capful twice daily as needed to prevent constipation. *Expected Signs/Symptoms: Your fatigue and endurance should improve as her anemia improves. *Notify Physician if: Seek medical attention right away if you have shortness of breath, chest discomfort, lightheadedness, vomiting of blood or coffee ground like material, bloody stools, or black tarry stools. *During Business Hours Contact: Call Dr. Rubalcava's office *After Business Hours Contact: Call [facility] milling planer operator at to have Dr. Rubalcava or her partner concrete bucket loader paged *Pending Lab/Results: No Pending Lab - Referrals/Follow Up *Referrals/Follow Up: Lyndsay Rubalcava MD [Primary Care Provider] - 1 Week - Patient Handouts Patient Handouts: Iron Deficiency Anemia (GEN) - Dismissal Complete Discharge Instructions are:: Complete Physician Narrative - Narrative Attestation Narrative: Date: 03/03/18 Time: 3651
== END 2018-03-03 12:00 | disposition home or self-care (01) | DRG 812 ==
LOC: MED → SUATTDRO 02-28 15:44
PROVIDERS: ADMIT Internal Medicine; ATTEND Internal Medicine
PROC: END.EGD (2018-02-28 13:45)